=== PATIENT | male | born 1990 | race Caucasian/White ===

== ENCOUNTER 2023-06-11 10:19 | Emergency (ER) | payer OTHER, SELFPAY ==
[2023-06-11 10:30] VITALS: BP 128/91
[2023-06-11 11:20] VITALS: BP 130/80
[2023-06-11] MEDS: NSS 1000 IV (11:42)
[2023-06-11 11:50] LABS: % Basophils 0.2 % (0-2); % Eosinophils 0.1 % (0-6); % Immature Granulocytes 0.2 % (0-0.5); % Lymphocytes 14.4 % (20.5-51.1); % Monocytes 7.4 % (1.7-9.3); % Neutrophils 77.7 % (42.2-75.2); Absolute Lymphocytes 1.8 10^3/uL (1.2-3.4); Absolute Monocytes 0.9 10^3/uL (0.1-0.6); Absolute Neutrophils 9.6 10^3/uL (1.4-6.5); Hematocrit 47.7 % (39.0-52.0); Hemoglobin 16.8 g/dL (13.0-18.0); Mean Corp Hgb Conc. 35.2 g/dL (33.0-37.0); Mean Corpuscular Hgb 31.6 pg (27.0-31.0); Mean Corpuscular Volume 89.8 fL (80.0-94.0); Mean Platelet Volume 10.1 fL (7.4-10.4); Nucleated Red Blood Cells % 0 % (-); Platelet Count 240 10^3/uL (130-400); Red Blood Cell Count 5.31 10^6/uL (4.70-6.10); Red Cell Dist. Width 11.8 % (11.5-14.5); White Blood Cell Count 12.3 10^3/uL (4.8-10.8)
[2023-06-11 12:00] LABS: ALT (SGPT) 30 U/L (0-50); AST (SGOT) 25 U/L (17-59); Albumin 4.8 g/dl (3.5-5.0); Alkaline Phosphatase 57 U/L (38-126); Blood Urea Nitrogen 16 mg/dl (9-20); Calcium 10.3 mg/dl (8.4-10.2); Carbon Dioxide 26 mmol/L (22-30); Chloride 103 mmol/L (98-107); Glucose 100 mg/dl (70-99); Lipase 44 U/L (23-300); Potassium 4.6 mmol/L (3.5-5.1); Sodium 137 mmol/L (135-145); eGFR > 60.00
--- NOTE | 2023-06-11 12:25 | ED.GENMED ---
History of Present Illness
General
Chief Complaint: Abdominal Symptoms
Source: patient
Exam Limitations: none
Time Seen by Provider: 06/11/23 11:28
Travel History
Have you had any contact with someone who has COVID-19?: No
Do you have any symptoms of coronavirus? Fever > 100 degrees, chills, cough, shortness of breath, sore throat, loss of taste or smell, muscle aches, or headache?: No
History of Present Illness
History of Present Illness:
32-year-old male with history of Crohn's disease presents with onset of abdominal pain last evening. The pain is periumbilical pain with associated vomiting. He is on a every 8-week infusion of Inflectra for his Crohn's disease. He follows at
[facility] for this. He spoke with his GI team this morning at the onset of symptoms they recommend he come for evaluation. No fever. No known sick contacts. He has not had significant bowel movements. No prior bowel obstruction.
No prior abdominal surgery. No other complaints at this time
Phy Exam
Physical Exam
Physical Exam:
General: Well-appearing male no acute respiratory distress
HEENT: Normocephalic atraumatic
Heart: Regular rate and rhythm no murmurs
Lungs: Clear to auscultation bilaterally no wheeze
Abdomen soft tender to the epigastric and periumbilical region. No guarding rebound normal bowel sounds nondistended
Extremities: No cyanosis
Course
Orders/Labs/Results
Orders:
Orders
06/11/23 11:35
CT Abd/pelvis W Iv Cont Urgent
Comment:
Reason For Exam: mid abdominal pain, history of crohns
06/11/23 11:39
0.9% Sodium Chloride 1000 ml [Nss] 1,000 ml IV BOLUS
06/11/23 11:41
Complete Blood Count/With Diff Urgent
Comprehensive Metabolic Panel Urgent
Lipase Urgent
Abnormal Lab Results
06/11/23
11:41
WBC 12.3 H 10^3/uL
(4.8-10.8)
MCH 31.6 H pg
(27.0-31.0)
Absolute Neuts (auto) 9.6 H 10^3/uL
(1.4-6.5)
Absolute Monos (auto) 0.9 H 10^3/uL
(0.1-0.6)
Neutrophils % 77.7 H %
(42.2-75.2)
Lymphocytes % 14.4 L %
(20.5-51.1)
Glucose 100 H mg/dl
(70-99)
Calcium 10.3 H mg/dl
(8.4-10.2)
Total Bilirubin 3.0 H mg/dl
(0.2-1.3)
06/11/23 11:41
06/11/23 11:41
Vital Signs
Initial and Last Documented VS:
Initial Vital Signs
Temp Pulse Resp BP Pulse Ox
98.4 F 100 18 128/91 99
06/11/23 10:30 06/11/23 10:30 06/11/23 10:30 06/11/23 10:30 06/11/23 10:30
Last Documented Vital Signs
Temp Pulse Resp BP Pulse Ox
98.4 F 86 16 126/82 100
06/11/23 10:30 06/11/23 13:51 06/11/23 13:51 06/11/23 13:51 06/11/23 13:51
MDM/Problems Addressed
Differential Diagnosis Includes:
Abdominal pain with history of Crohn's disease. Consider gastritis versus Crohn's flare versus pancreatitis versus bowel obstruction
Labs pending. Will check CT with IV contrast. Patient declined pain medications at this time.
*Critical Care Note
Total Time (30-74mins, 75-104mins- exclusive of procedures): Not Applicable
Update Note
Update Note:
CT shows bowel wall thickening of the small bowel terminal ileum and colon. This would be suggestive mostly of a flare of his underlying inflammatory bowel disease. No perforations or abscesses noted. No signs of obstruction. Patient is able to
tolerate water here. Discussed these findings with on-call GI team. Will discharge home on oral prednisone. He has an appoint with his GI specialist at [facility] in 3 days. This is good follow-up. Patient unable to provide a
stool sample for discharge. Return precautions were given
ED Attending Note
-
Portions of this chart may have been created with voice recognition software.� Occasional wrong word or��sound alike� substitutions may have occurred due to the inherent limitations of voice recognition software.
Discharge Plan
Departure
Patient Disposition: Home (Routine Discharge)
Date of Disposition: 06/11/23
Time of Disposition: 14:20
Patient with high blood pressure during this ER visit?: No
Discharge Problem:
Crohn disease
Instructions: Crohn's Disease (DC)
Prescriptions:
New
prednisone 20 mg tablet
40 mg PO DAILY 7 Days Qty: 14 0RF
Referrals:
Abimbola Baker MD [Family Provider] -
Activity Restrictions/Additional Instructions:
Drink plenty clear liquids. Advance to bland diet as tolerated. Use prednisone as directed. Please follow-up as planned with your GI team. As discussed, return here for increasing pain vomiting fever or other concerning findings
Interventions
Interventions:
*Risk Screen - Suicide Last Done: 06/11/23 11:22
*General Assessment Last Done: 06/11/23 11:20
*Neglect/Abuse Screening Last Done: 06/11/23 11:22
*ED COVID-19 Vaccine History Last Done: 06/11/23 11:20
JI-Vkrwhv-Zcgqcblmhk Assessment Last Done: 06/11/23 11:21
Discharge Date and Time
Print Language: GEORGIAN
[2023-06-11 13:51] VITALS: BP 126/82
[2023-06-11] MEDS: DELTASONE 50 MG PO (14:50)
[2023-06-11] MEDS: TYLENOL 650 MG PO (14:50)
--- NOTE | 2023-06-11 14:52 | EDRN ---
Unable to obtain stool sample prior to discharge.
== END 2023-06-11 14:53 | disposition home or self-care (01) ==
LOC: EMR 10:19
PROVIDERS: Physician Assistant; EMERGENCY PHYSICIAN Emergency Medicine; FAMILY PHYSICIAN Internal Medicine
DX: K50.90 Crohn's disease, unspecified, without complications (principal)
CPT/HCPCS: 99284; 96360; 74177; 80053; 83690; 85025; Q9967

== ENCOUNTER 2023-06-11 23:02 | Inpatient (IN) | payer OTHER, SELFPAY ==
[2023-06-11 21:31] VITALS: BP 141/95
--- NOTE | 2023-06-11 22:08 | ED.GENMED ---
History of Present Illness
General
Chief Complaint: Abdominal Pain
Source: patient, records, spouse and family
Time Seen by Provider: 06/11/23 21:37
Nursing documentation reviewed up to this point in time: agreed with
Travel History
Have you had any contact with someone who has COVID-19?: No
Do you have any symptoms of coronavirus? Fever > 100 degrees, chills, cough, shortness of breath, sore throat, loss of taste or smell, muscle aches, or headache?: No
History of Present Illness
History of Present Illness:
32-year-old male returns with abdominal pain history of Crohn's diagnosed about 6 years ago at [place] was in the ICU treated with antibiotics he is followed by [facility] GI takes a Remicade like infusion has really had an
exacerbation since his initial and 6 years ago seen in the ER less than 24 hours ago with pain after discussion with GI at [facility] was deemed stable for discharge with outpatient follow-up has an appointment on Wednesday treated with
Tylenol and steroids states since he was discharged has had nausea vomiting, vomited Tylenol thinks he Is steroid down no fevers, no bloody stools, he feels bloated
Past History
Past History
ED Past Medical History: Other (chronc)
ED Past Surgical History: Negative Appendectomy or Bowel resection
Social History
Tobacco: Non-smoker
Alcohol: None
Drug: None
Personal:
Living: with family
Employment: Employed
Review of Systems
Review of Systems
All Other Systems: Not applicable
Constitutional: Denies fever or fatigue
EENT: Reports no symptoms
Respiratory: Reports no symptoms
Cardiac: Reports no symptoms
ABD/GI: Reports abdominal pain, nausea and vomiting; Denies bloody stools or black stools
: Reports no symptoms
Musculoskeletal: Reports no symptoms
Neurological: Reports no symptoms
Endocrine: Reports no symptoms
Phy Exam
Physical Exam
Physical Exam:
Physical Exam
General: no apparent distress, not acutely ill
Neck: No jaundice
Heart: s1/s2 regular rate and rhythm, no murmur. equal radial pulses.
Lungs: no acute respiratory distress. clear bilaterally
Abdomen: Distended mild diffuse tender
Neuro: alert and oriented. no focal neurological deficits
Skin: no rash
Psychiatric: well kept. interactive and cooperative
Extremities: no edema.
Course
Orders/Labs/Results
Orders:
Orders
06/11/23 22:05
CBC/With ESR Urgent
CRP [C-Reactive Protein] Urgent
Comprehensive Metabolic Panel Urgent
06/11/23 22:11
Dexamethasone Sod Phosphate [Decadron] 10 mg IV NOW STA
HYDROmorphone [Dilaudid] 1 mg IV NOW STA
Ondansetron Injectable [Zofran] 4 mg IV NOW STA
06/11/23 22:12
0.9% Sodium Chloride 1000 ml [Nss] 1,000 ml IV BOLUS
Abnormal Lab Results
06/11/23
22:05
WBC 13.7 H 10^3/uL
(4.8-10.8)
MCH 31.9 H pg
(27.0-31.0)
Absolute Neuts (auto) 12.2 H 10^3/uL
(1.4-6.5)
Absolute Lymphs (auto) 0.9 L 10^3/uL
(1.2-3.4)
Neutrophils % 89.3 H %
(42.2-75.2)
Lymphocytes % 6.4 L %
(20.5-51.1)
06/11/23 22:05
Vital Signs
Initial and Last Documented VS:
Initial Vital Signs
Temp Pulse Resp BP Pulse Ox
98.9 F 82 20 141/95 97
06/11/23 21:31 06/11/23 21:31 04/12/24 21:31 06/11/23 21:31 06/11/23 21:31
Last Documented Vital Signs
Temp Pulse Resp BP Pulse Ox
98.9 F 82 20 129/86 96
06/11/23 21:31 06/11/23 21:31 06/11/23 21:31 06/11/23 22:09 06/11/23 22:10
*Radiology
Radiology exam reviewed: radiology read reviewed
*Pulse Oximetry
Patient hypoxic: no
*Critical Care Note
Total Time (30-74mins, 75-104mins- exclusive of procedures): Not Applicable
Update Note
Update Note:
Update, prior workup from visit noted CAT scan report noted labs noted patient was deemed stable to go home after discussion with his GI physicians on some steroids, he is back with increased pain and bloating low threshold to admit we will start IV
steroids he is having no loose stools check inflammatory markers will not reimage at this point
ED Attending Note
-
Portions of this chart may have been created with voice recognition software.� Occasional wrong word or��sound alike� substitutions may have occurred due to the inherent limitations of voice recognition software.
Discharge Plan
Departure
Patient Disposition: Admit
Date of Disposition: 06/11/23
Time of Disposition: 22:27
Admit to: Med/Surg
Presentation/result/management discussed w/ accepting MD/DO: Hospitalist
Patient with high blood pressure during this ER visit?: No
Condition: Good
Discharge Problem:
Crohn disease
Prescriptions:
No Action
prednisone 20 mg tablet
40 mg PO DAILY 7 Days Qty: 14 0RF
Interventions
Interventions:
*Risk Screen - Suicide Last Done: 06/11/23 21:31
*General Assessment Last Done: 06/11/23 21:31
*Neglect/Abuse Screening Last Done: 06/11/23 21:31
ED- Fall Risk Assessment Last Done: 06/11/23 21:31
*ED COVID-19 Vaccine History Last Done: 06/11/23 21:31
AD-Dfrpwu-Qdosdwotjf Assessment Last Done: 06/11/23 22:10
Discharge Date and Time
Print Language: GREENLANDIC
[2023-06-11 22:09] VITALS: BP 129/86
[2023-06-11 22:10] VITALS: BMI 27.6
[2023-06-11 22:10] LABS: % Basophils 0.1 % (0-2); % Immature Granulocytes 0.3 % (0-0.5); % Lymphocytes 6.4 % (20.5-51.1); % Monocytes 3.9 % (1.7-9.3); % Neutrophils 89.3 % (42.2-75.2); Absolute Lymphocytes 0.9 10^3/uL (1.2-3.4); Absolute Monocytes 0.5 10^3/uL (0.1-0.6); Absolute Neutrophils 12.2 10^3/uL (1.4-6.5); Hemoglobin 16.3 g/dL (13.0-18.0); Mean Corp Hgb Conc. 36.2 g/dL (33.0-37.0); Mean Corpuscular Hgb 31.9 pg (27.0-31.0); Mean Corpuscular Volume 88.1 fL (80.0-94.0); Mean Platelet Volume 10.1 fL (7.4-10.4); Nucleated Red Blood Cells % 0 % (-); Platelet Count 229 10^3/uL (130-400); Red Blood Cell Count 5.11 10^6/uL (4.70-6.10); Red Cell Dist. Width 11.6 % (11.5-14.5); White Blood Cell Count 13.7 10^3/uL (4.8-10.8)
[2023-06-11] MEDS: NSS 1000 IV (22:14)
[2023-06-11 22:16] LABS: Erythrocyte Sed Rate 5 mm/hour (0-20)
[2023-06-11] MEDS: ZOFRAN 4 MG IV (22:17)
[2023-06-11] MEDS: DILAUDID 1 MG IV (22:20)
[2023-06-11] MEDS: DECADRON 10 MG IV (22:22)
--- NOTE | 2023-06-11 22:24 | HPS.HSE ---
Family Physician
<XIN Byrd - Last Filed: 06/11/23 22:52>
-
Family Physician:
Chief Complaint
<XIN Byrd - Last Filed: 06/11/23 22:52>
-
Abdominal pain associate with nausea vomiting
History of Present Illness
32-year-old male with past medical history for polyps disease. Patient on Inflectra every 8 weeks. He follows [facility] GI as outpatient. He presented back with mid abdominal pain associate with nausea vomiting for past 2 days. He was
evaluated in the ER this morning. Patient was sent home on prednisone. Patient does have an appointment with [facility] on Wednesday. He had a regular bowel movement yesterday morning. Patient not tolerating any oral intake. Denied fever, chills,
chest pain, short of breath. Patient denied headache, dizziness, syncopal episode. Patient denied dysuria, hematuria.
Medical History
<XIN Byrd - Last Filed: 06/11/23 22:52>
Past Medical History
Past Medical History: Reports Other
Additional Past Medical History:
crohn's disease
Past Surgical History: Reports None
Social History
Tobacco: Non-smoker
Alcohol: None
Drug: None
Family History
Family History: Not pertinent
Allergies / Home Medications
Allergies reflects when Allergies were last updated in [facility].
Home Medications with original date entered in [facility]
Allergy/Medication List:
Allergies
Allergy/AdvReac Type Severity Reaction Status Date / Time
No Known Allergies Allergy Verified 06/11/23 21:34
Home Medications
infliximab-dyyb 100 mg intravenous solution (Inflectra) mg IV 06/11/23
prednisone 20 mg tablet 40 mg (2 x 20 mg) PO DAILY 7 days #14 tabs 06/11/23
Review of Systems
<IzaXIN Nelson - Last Filed: 06/11/23 22:52>
-
Constitutional: Reports No Symptoms
EENT: Reports No Symptoms
Respiratory: Reports No Symptoms
Cardiac: Reports No Symptoms
Abdomen/GI: Reports Abdominal Pain, Nausea and Vomiting
: Reports No Symptoms
Musculoskeletal: Reports No Symptoms
Skin: Reports No Symptoms
Neurological: Reports No Symptoms
Endocrine: Reports No Symptoms
Hematologic/Lymphatic: Reports No Symptoms
Psych: Reports No Symptoms
Physical Exam
<IzaXIN Nelson - Last Filed: 06/11/23 22:52>
Vital Signs
Vital Signs
Temp Pulse Resp BP Pulse Ox
98.9 F 82 20 129/86 96
06/11/23 21:31 06/11/23 21:31 06/11/23 21:31 06/11/23 22:09 06/11/23 22:10
Physical Exam
General: Well Developed, Well Nourished and No Apparent Distress
HEENT: NormoCephalic, Moist mucous membranes and Atraumatic
Respiratory: Clear
Cardiac: S1/S2 and Regular Rhythm; No Murmur or Rub
GI: Soft, Non Distended, Normal Bowel Sounds and Tender; No Organomegaly
Rectal: Deferred by Provider
Musculoskeletal: No Clubbing, No Cyanosis and No Edema
Skin: No Rash
Neuro: Nonfocal/grossly intact
Laboratory Results
<XIN Byrd - Last Filed: 06/11/23 22:52>
-
06/11/23 22:05
Data Reviewed
<XIN Byrd - Last Filed: 06/11/23 22:52>
-
CT Scan: Report Reviewed by me
Impression/Plan
<XIN Byrd - Last Filed: 06/11/23 22:52>
-
# abdominal pain associated with n/v likely from Crohn's flare
-WBC 13.7 likely from steroids
-CT abdomen pelvis with impression of Inflamed/thickened appearance of multiple mid small bowel loops as well as the descending and sigmoid colon. Findings compatible with acute flare related to patient's inflammatory bowel disease. The ileum is
decompressed with mildly thickened appearance extending to the terminal ileum. Presence of a stricture difficult to exclude. Small amount of free fluid within the pelvis.Cholelithiasis.
-IV dexamethasone in ER
-solu Medrol 60mg iv daily
-Dilaudid as needed for pain
-Zofran as needed for nausea vomiting
-fluids continued for hydration.
-N.p.o.
-GI consulted
# DVT prophylaxis
-SCD
# CODE STATUS
-Full code
<Bertha Johnston, DO - Last Filed: 06/11/23 23:12>
-
# abdominal pain associated with n/v likely from Crohn's flare
-WBC 13.7 likely from steroids
-CT abdomen pelvis with impression of Inflamed/thickened appearance of multiple mid small bowel loops as well as the descending and sigmoid colon. Findings compatible with acute flare related to patient's inflammatory bowel disease. The ileum is
decompressed with mildly thickened appearance extending to the terminal ileum. Presence of a stricture difficult to exclude. Small amount of free fluid within the pelvis.Cholelithiasis.
-IV dexamethasone in ER
-solu Medrol 60mg iv daily
-Dilaudid as needed for pain
-Zofran as needed for nausea vomiting
-fluids continued for hydration.
-N.p.o.
-GI consulted
# DVT prophylaxis
-SCD
# CODE STATUS
-Full code
Attending Attestation
HPI
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 Pt was in ER earlier today, diagnosed with Crohns Flare and discharged with oral prednisone which he could not tolerate.
He reports 2 days of mid-epigastric abdominal pain, waxing/waning associated with N/Vx2 (nonbloody). Cannot tolerate any foods at this time. +bloating. Has not passed a stool since yesterday, but denies known bloody/black stools. Reports he has not
had a recent flare or been on IV/oral steroids. Last infliximab infusion was 05/04/2023, due every q8 weeks. Pt follows with GI at [facility] Dr. Mckenzie Wade. Last [place] 07/03/2022. Denies fever, chills, dizziness/LH, CP, palps, wheezing, cough, dysuria,
flank pain, calf or leg pain/swelling.
Physical Exam
General: NAD. Following commands
HEENT: NC/AT. Dry MM. No exudates in oropharynx.
Cardiac: RRR, +S1/S2, No M/R/G
Pulm: CTA b/l, No accessory muscle use
GI: Soft. Minimal distention. Mild midepigastric TTP. No rebound or guarding.
: No Wilson. No CVA tenderness
MSK/Neuro: 5/5 MSK throughout. No focal deficits.
Ext: MAEx4. Distal pulses +2/4 symmetrically intact.
A/P
Intractable Abdominal Pain 2/2 Acute Crohns Flare
Leukocytosis - Suspect leukocytosis is in setting of flare vs related to steroids. Monitoring off abx
DVT PPx - SCDs. Consider chemical DVT ppx if no rectal bleeding and pt remains in hospital
- Last infliximab infusion was 05/04/2023, due every q8 weeks.
- CT abdomen pelvis reviewed: Inflamed/thickened appearance of multiple mid small bowel loops as well as the descending and sigmoid colon. Findings compatible with acute flare related to patient's inflammatory bowel disease. The ileum is
decompressed with mildly thickened appearance extending to the terminal ileum. Presence of a stricture difficult to exclude. Small amount of free fluid within the pelvis. Cholelithiasis
- LFTs wnl. Lipase checked earlier today and wnl.
- S/P IV dexamethasone in ER. Will change to 60mg IV solumedrol daily. Transition to orals when able to tolerate PO
- PRN Zofran. IVF.
- NPO status. ADAT.
- Consult GI - Pt follows with GI at [facility] Dr. Mckenzie Wade.
Communication: Fiance and mother present at time of evaluation. I discussed care plan with patient and family together who are agreeable.
[2023-06-11 22:29] LABS: ALT (SGPT) 27 U/L (0-50); AST (SGOT) 22 U/L (17-59); Albumin 4.7 g/dl (3.5-5.0); Alkaline Phosphatase 54 U/L (38-126); Blood Urea Nitrogen 16 mg/dl (9-20); Calcium 10.2 mg/dl (8.4-10.2); Carbon Dioxide 24 mmol/L (22-30); Chloride 100 mmol/L (98-107); Estimated Creatinine Clearance > 125 ml/min; Glucose 124 mg/dl (70-99); Potassium 4.3 mmol/L (3.5-5.1); Sodium 135 mmol/L (135-145); Total Bilirubin 2.8 mg/dl (0.2-1.3); Total Protein 7.4 g/dl (6.3-8.2); eGFR > 60.00
[2023-06-11 23:00] VITALS: BP 121/93
--- NOTE | 2023-06-11 23:19 | W.PN.UPDATE ---
Addendum entered and electronically signed by Bertha Johnston DO 06/11/23 23:23:
Plan Initially stating LFTs wnl.
TBili 3.0 earlier today -> 2.8 on repeat
RUQ exam benign
CT a/p reviewed: No acute biliary tree pathology. Cholelithiasis noted.
Suspect indirect elevation may be cholestasis from dehydration vs gilberts. Appreciate GI recs.
Check AM LFTs and evaluate direct bilirubin
Original Note:
Update Note
Progress Note Update
Please refer to attestation to [employer]PER[employer] note for attending history/assessment/plan
--- NOTE | 2023-06-11 23:45 | PTCARENOTE ---
Pt admitted to unit from ED, AAOx3 VSS denies pain or SOB. Pt pleasant and cooperative able to make needs known. Reports LBM on 06/09, nausea earlier before arriving to ED but denies now. Reports pain is being controlled with IV pain medications. Pt
oriented to unit and hospital policies call mancia within reach
[2023-06-12] VITALS: BP 124/76; BMI 26.9
[2023-06-12] MEDS: NSS 1000 IV ×2 (00:15→12:49)
--- NOTE | 2023-06-12 06:22 | CON.GI ---
Addendum entered and electronically signed by Leeanna Hannah Do, MD 06/12/23 09:13:
I saw and examined the patient.
The BOWL TOPPER's note was reviewed and I agree with the note.
Comment: Garland is a 32yo M with h/o Crohn's disease diagnosed at 26 with possible fistulizing disease currently on inflectra since 2021 who is admitted for abd pain and PO intolerance with CT AP with IV contrast showing Inflamed/thickened
appearance of multiple mid small bowel loops as well as the descending and sigmoid colon. Findings compatible with acute flare related to patient's inflammatory bowel disease. Exam VSS, mild epigastric TTP, NABS no guarding or rebound. No mouth
sores. Labs reviewed without anemia.
Impression
- Acute diffuse abd pain with inflamed SB and L colon
Suspect Crohn's flare. This would be his 1st since diagnosis at age 26
- Cholelithiasis
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
- Gilbert's
Recommendations
- Improving on IV solumedrol Q8H
- Adv to CLD today
- Await stools for stool studies testing
- C/w IVF
- He has OP FU with [facility] Dr Wade on Wednesday
Will follow with you.
Original Note:
Consultation
-
Date/Time Consultation Requested: 06/12/23 0001
Date/Time Consultation Performed: 06/12/23 0700
Requesting Provider: XIN Alves
Performing Provider: XIN Everett, Leeanna Moise MD
Reason for Consultation: abdominal pain, hx crohns
Medical History
Chief Complaint / HPI
Chief Complaint: abdominal pain
History of Present Illness:
Pt is a 32yo with hx crohn's disease x 6 years, PVT, liver infection, cholelithiasis, ACL repair. Initial diagnosis was 2018 at [place] [facility] with ICU admission with noted Phlegmon, liver infection, and PVT thrombosis and concern for fistulizing
crohn's disease. He was treated with antibiotics and anticoagulation course and no surgery was required. He has been treated through [facility] since that time with Dr. Wade with Remicade then Inflectra for last 2 years with
stable disease. Last colonoscopy 06/2022 with stable disease and normal path. MRI 08/2022 with mild acute inflammation of terminal ileum. No hospital admission since 2018 and no prior steroid use. No history of prior abdominal surgery. On
admission ESR 5, CRP 6.6 otherwise labs stable except WBC 13,700, glucose 124 and bilirubin 2.8 with no baseline labs in DH system but note hx prior mild glucose elevations and prior bilirubin elevation at [place] labs. CT completed on admission with
thickening of multiple mid SB loops as well as descending and sigmoid colon with concern for crohns flare. The ileum is decompressed with mildly thickened appearance extending to the terminal ileum. Presence of a stricture difficult to exclude. Pt
states he began with abdominal pain with vomiting and constipation on . He initially came to ER was treated wtih PO steroids and plan for [place] follow up Wednesday but returned with inability to eat and started on IV steroids with some
improvement this am. No current rashes, visual problems or Joint pains.
Pt currently admits to recent abdominal pain since . He also noted constipation and vomiting. He denies GERD, dysphagia, blood or black in stools. Normal stool pattern 1-2 stools daily. No fever, + 7 lbs intentional wt loss.
Maternal grandmother and great grandmother with colon CA.
.
Past Medical History
Past Medical History: Other ( cholelithiasis, 2018 - PVT, phegmon and liver infection with concern for fistulizing crohn's disease, migraines)
Past Surgical History: Orthopedic (ACL repair)
Social History
Tobacco: Non-Smoker
Alcohol: None
Drug: None
Personal: Other (bharat)
Living: With Family
Employment: Employed
Family History
Family History: Other (maternal grandmother and great grandmother with colon CA)
Allergies / Home Medications
Allergy/AdvReac Type Severity Reaction Status Date / Time
No Known Allergies Allergy Verified 06/11/23 21:34
�Medication �Instructions �Recorded
infliximab-dyyb 100 mg intravenous mg IV 06/11/23
solution (Inflectra)
prednisone 20 mg tablet 40 mg (2 x 20 mg) PO DAILY 7 days 06/11/23
#14 tabs
Review of Systems
-
History Source: Patient
Constitutional: Reports Weight Loss (7 lbs intentional loss )
EENT: Reports No Symptoms
Abdomen/GI: Reports Abdominal Pain, Nausea, Vomiting and Constipated
: Reports No Symptoms
Musculoskeletal: Reports No Symptoms
Skin: Reports No Symptoms
Neurological: Reports No Symptoms
Endocrine: Reports No Symptoms
Hematologic/Lymphatic: Reports No Symptoms
Vital Signs
Temp Pulse Resp BP Pulse Ox
98.3 F 72 20 124/76 97
06/12/23 00:00 06/12/23 00:00 06/12/23 00:00 06/12/23 00:00 06/12/23 00:00
Physical Exam
Exam
General: Well Developed, Well Nourished and No Apparent Distress
HEENT: Normocephalic and Anicteric
Respiratory: Clear
Cardiac: Regular Rhythm
GI: Soft, Non Distended and Tender (mild mid right tenderness)
Musculoskeletal: No Clubbing and No Cyanosis
Skin: Warm and Dry
Neuro: Awake, Alert and AO x 3
Results
WBC 13.7 10^3/uL (4.8-10.8) H 06/11/23 22:05
Hgb 16.3 g/dL (13.0-18.0) 06/11/23 22:05
Hct 45.0 % (39.0-52.0) 06/11/23 22:05
MCV 88.1 fL (80.0-94.0) 06/11/23 22:05
Plt Count 229 10^3/uL (130-400) 06/11/23 22:05
Absolute Neuts (auto) 12.2 10^3/uL (1.4-6.5) H 06/11/23 22:05
Sodium 135 mmol/L (135-145) 06/11/23 22:05
Potassium 4.3 mmol/L (3.5-5.1) 06/11/23 22:05
Chloride 100 mmol/L (98-107) 06/11/23 22:05
Carbon Dioxide 24 mmol/L (22-30) 06/11/23 22:05
BUN 16 mg/dl (9-20) 06/11/23 22:05
Creatinine 0.9 mg/dL (0.7-1.3) 06/11/23 22:05
Calcium 10.2 mg/dl (8.4-10.2) 06/11/23 22:05
Total Bilirubin 2.8 mg/dl (0.2-1.3) H 06/11/23 22:05
AST 22 U/L (17-59) 06/11/23 22:05
ALT 27 U/L (0-50) 06/11/23 22:05
Alkaline Phosphatase 54 U/L (38-126) 06/11/23 22:05
Diagnostic Image Results:
06/11/23 CT Abd/pelvis W Iv Cont no oral contrast
1. Inflamed/thickened appearance of multiple mid small bowel loops as well as the descending and sigmoid colon. Findings compatible with acute flare related to patient's inflammatory bowel disease. The ileum is decompressed with mildly thickened
appearance extending to the terminal ileum. Presence of a stricture difficult to exclude. Small amount of free fluid within the pelvis.
2. Cholelithiasis.
3. Additional findings above
Prior GI Procedures:
EGD: none
Colonoscopy: last [facility] 06/2022 stable disease
MRE: 06/2022 milid improved inflammation in TI
Assessment / Plan
-
Pt is a 32yo with hx crohn's disease x 6 years, PVT, liver infection, migraines, cholelithiasis, ACL repair. Initial diagnosis was 2018 at [facility] with ICU admission with noted Phlegmon, liver infection, and PVT thrombosis and concern for
fistulizing crohn's disease. He was treated with antibiotics and anticoagulation course and no surgery was required. He has been treated through [facility] since that time with Dr. Wade with Remicade then Inflectra for last
2 years with stable disease. Last colonoscopy 06/2022 with stable disease and normal path. MRI 08/2022 with mild acute inflammation of terminal ileum. No hospital admission since 2018 and no prior steroid use. No hx prior abdominal surgery. On
admission ESR 5, CRP 6.6 otherwise labs stable except WBC 13,700, glucose 124 and bilirubin 2.8 with no baseline labs in DH system but note hx prior mild glucose elevations and prior bilirubin elevation at [place] labs. CT completed on admission with
thickening of multiple mid SB loops as well as descending and sigmoid colon with concern for crohns flare. The ileum is decompressed with mildly thickened appearance extending to the terminal ileum. Presence of a stricture difficult to exclude. Pt
states he began with abdominal pain with vomiting and constipation on . He initially came to ER was treated wt PO steroids and plan for [place] follow up Wednesday but returned with inability to eat and started on IV steroids with some
improvement this am. No current rashes, visual problems or Joint pains.
-abdominal pain
-CT with concern for thickening SB loops as well as descending and sigmoid
-hx crohns on Inflectra follows at [facility]
-hx prior PVT, pheglmon and liver infection 2018 with diagnosis of crohns and concern for fistulizing disease
-leukocytosis
-elevated bilirubin elevation with prior elevation in past ? gilbert's
-hx ACL repair
-family hx colon cancer grandmother/great grandmother
PLAN:
Etiology of symptoms with concern for crohn's flare vs other
some improvement in pain this am
pt intolerant of initial oral steroid course(first course) with vomiting and now on IV steroids Solumedrol 60mg
will change to Solumedrol to 20mg Q 8 hours-- reviewed with nursing dose not given this am
will trial sips clears advance as tolerated
OP follow up scheduled with Dr. Wade for Wednesday hopefully will be discharged prior to proceed with follow up
CRP 6.6/ESR 5 on admission
repeat LFT's pending this am with bili elevation to assess for ? gilbert's vs other
-
-
Thank you for consultation and allowing me to participate in the patient's care. Please call the pest control worker helper GI physician during the after hours with any questions or concerns.
[2023-06-12 07:52] VITALS: BP 116/74
[2023-06-12 08:15] LABS: Hematocrit 42.5 % (39.0-52.0); Hemoglobin 14.7 g/dL (13.0-18.0); Mean Corp Hgb Conc. 34.6 g/dL (33.0-37.0); Mean Corpuscular Volume 92.6 fL (80.0-94.0); Mean Platelet Volume 11.2 fL (7.4-10.4); Platelet Count 204 10^3/uL (130-400); Red Blood Cell Count 4.59 10^6/uL (4.70-6.10); Red Cell Dist. Width 11.8 % (11.5-14.5); White Blood Cell Count 12.3 10^3/uL (4.8-10.8)
[2023-06-12] MEDS: SOLU-MEDROL PF 20 MG IV ×2 (08:19→18:10)
[2023-06-12 08:45] LABS: ALT (SGPT) 26 U/L (0-50); AST (SGOT) 25 U/L (17-59); Alkaline Phosphatase 52 U/L (38-126); Blood Urea Nitrogen 17 mg/dl (9-20); Calcium 9.2 mg/dl (8.4-10.2); Carbon Dioxide 23 mmol/L (22-30); Chloride 106 mmol/L (98-107); Direct Bilirubin 0.3 mg/dl (0.0-0.4); Estimated Creatinine Clearance > 125 ml/min; Glucose 110 mg/dl (70-99); Potassium 4.4 mmol/L (3.5-5.1); Sodium 136 mmol/L (135-145); Total Bilirubin 2.8 mg/dl (0.2-1.3); Total Protein 6.6 g/dl (6.3-8.2); eGFR > 60.00
--- NOTE | 2023-06-12 09:13 | W.PN.UPDATE ---
Update Note
Progress Note Update
Billing purposes
--- NOTE | 2023-06-12 10:43 | W.PN.HOSP.TC ---
Today's Communication/Plan
-
CW steroids
Advance diet per GI
Assessment / Plan
Assessment / Plan
A/P
Intractable Abdominal Pain 2/2 Acute Crohns Flare
Leukocytosis - Suspect leukocytosis is in setting of flare vs related to steroids. Monitoring off abx
- Last infliximab infusion was 05/04/2023, due every q8 weeks.
- CT abdomen pelvis reviewed: Inflamed/thickened appearance of multiple mid small bowel loops as well as the descending and sigmoid colon. Findings compatible with acute flare related to patient's inflammatory bowel disease. The ileum is
decompressed with mildly thickened appearance extending to the terminal ileum. Presence of a stricture difficult to exclude. Small amount of free fluid within the pelvis. Cholelithiasis
- LFTs wnl except bili which is all indirect . Lipase wnl.
- cw IV steroids per GI
- cw CLD- advance per GI
Anticipated Discharge: 24 - 48 hours
Subjective/Interval History
-
Date of Service: June 12, 2023
Patient started to improve-less abdominal pain. Tolerating clear liquids without nausea or vomiting. Passing gas. No diarrhea.
No fever or chills.
Objective Data
-
Labs:
Laboratory Results
06/12/23
06:37
WBC 12.3 H
Hgb 14.7
Hct 42.5
Plt Count 204
Sodium 136
Potassium 4.4
Chloride 106
Carbon Dioxide 23
BUN 17
Creatinine 0.8
Glucose 110 H
Calcium 9.2
Total Bilirubin 2.8 H
AST 25
ALT 26
Alkaline Phosphatase 52
Vital Signs:
Vital Signs
Temp Pulse Resp BP Pulse Ox
98.2 F 77 16 116/74 95
06/12/23 07:52 06/12/23 07:52 06/12/23 07:52 06/12/23 07:52 06/12/23 07:52
I&O
06/11/23 06/12/23 06/13/23
06:59 06:59 06:59
Intake Total 560 / 560
Balance 560 / 560
Physical Exam
-
General: No Apparent Distress
HEENT: Moist Mucous Membranes
Respiratory: Non Labored Respirations; Negative Accessory Resp Muscle Use
Cardiac: Regular Rhythm and S1/S2; Negative Tachycardic
GI: Soft
Neuro: AO x 3
Psych: Calm
Data Reviewed
-
Labs: Labs Reviewed by me
[2023-06-12 14:57] VITALS: BP 137/96
--- NOTE | 2023-06-12 15:30 | CM ---
CM met with pt and multiple family members
Pt resides with his parents and adult brother in a 2SH with 1 EMILY
Full flight to 2nd floo
Pt is independent with his ADLs
Denies use of DMEs and hx with VN/SNF
PCP- Abimbola Baker
Rx- [facility] is primary contact
Discharge Disposition- home, no needs anticipated
[2023-06-12 23:30] VITALS: BP 116/70
[2023-06-13] MEDS: NSS 1000 IV (00:07)
[2023-06-13] MEDS: SOLU-MEDROL PF 20 MG IV ×2 (00:07→08:17)
--- NOTE | 2023-06-13 03:42 | PTCARENOTE ---
pt had formed BM at this time, able to send down to lab stool culture and para stool specimen, Cdiff incomplete.
--- NOTE | 2023-06-13 05:32 | PTCARENOTE ---
cdiff specimen sent at this time
[2023-06-13 06:26] LABS: Hematocrit 42.2 % (39.0-52.0); Hemoglobin 14.4 g/dL (13.0-18.0); Mean Corp Hgb Conc. 34.1 g/dL (33.0-37.0); Mean Corpuscular Hgb 31.7 pg (27.0-31.0); Mean Platelet Volume 10.5 fL (7.4-10.4); Platelet Count 210 10^3/uL (130-400); Red Blood Cell Count 4.54 10^6/uL (4.70-6.10); Red Cell Dist. Width 11.8 % (11.5-14.5); White Blood Cell Count 11.9 10^3/uL (4.8-10.8)
[2023-06-13 06:58] LABS: Blood Urea Nitrogen 17 mg/dl (9-20); Calcium 9.7 mg/dl (8.4-10.2); Carbon Dioxide 25 mmol/L (22-30); Chloride 104 mmol/L (98-107); Estimated Creatinine Clearance > 125 ml/min; Glucose 114 mg/dl (70-99); Potassium 4.9 mmol/L (3.5-5.1); Sodium 137 mmol/L (135-145); eGFR > 60.00
[2023-06-13 08:07] VITALS: BP 126/78
--- NOTE | 2023-06-13 10:26 | W.PN.GI.CBS2 ---
Today's Communication / Plan
-
Tolerating low residue diet
D/c today on pred taper as above (60mg daily x7days, 50mg daily x7days, 40mg daily x7days, decreasing by 10mg every week)
Close GI FU with Dr Carrillo at [facility] Wednesday
GI will sign off please call for questions
Assessment / Plan
-
Pt is a 32yo with hx crohn's disease x 6 years, PVT, liver infection, migraines, cholelithiasis, ACL repair. Initial diagnosis was 2018 at [place] with ICU admission with noted Phlegmon, liver infection, and PVT thrombosis and concern for
fistulizing crohn's disease. He was treated with antibiotics and anticoagulation course and no surgery was required. He has been treated through [facility] since that time with Dr. Wade with Remicade then Inflectra for last
2 years with stable disease. Last colonoscopy 06/2022 with stable disease and normal path. MRI 08/2022 with mild acute inflammation of terminal ileum. No hospital admission since 2018 and no prior steroid use. No hx prior abdominal surgery. On
admission ESR 5, CRP 6.6 otherwise labs stable except WBC 13,700, glucose 124 and bilirubin 2.8 with no baseline labs in system but note hx prior mild glucose elevations and prior bilirubin elevation at [place] labs. CT completed on admission with
thickening of multiple mid SB loops as well as descending and sigmoid colon with concern for crohns flare. The ileum is decompressed with mildly thickened appearance extending to the terminal ileum. Presence of a stricture difficult to exclude. Pt
states he began with abdominal pain with vomiting and constipation on . He initially came to ER was treated wt PO steroids and plan for [place] follow up Wednesday but returned with inability to eat and started on IV steroids with some
improvement this am. No current rashes, visual problems or Joint pains.
Impression
-abdominal pain
-CT with concern for thickening SB loops as well as descending and sigmoid
-hx crohns on Inflectra follows at [facility]
-hx prior PVT, pheglmon and liver infection 2018 with diagnosis of crohns and concern for fistulizing disease
-leukocytosis
-gilbert's
-hx ACL repair
-family hx colon cancer grandmother/great grandmother
Plan
- resolution of abd pain on IV steroids
- transition to oral pred today
- tolerating low residue diet
- stool studies neg for infection
Ok from GI perspective for hosp d/c today. Will need pred taper 60mg daily x7d, tapering down 10mg every 7 days.
He has FU with GI Dr Carrillo at [facility] on Wednesday
Above d/w hospitalist. GI will sign off please call for questions.
Subjective
Subjective
Date of Service: June 13, 2023
Ate 100% of low residue diet and denies any further abd pain. No nausea/vomiting. He had 2 BM yesterday one formed and one loose. Stool studies neg
Objective
Data Reviewed
Laboratory Data:
Laboratory Results
06/13/23 06:10
06/13/23 06:10
Laboratory Results
Total Bilirubin 2.8 mg/dl (0.2-1.3) H 06/12/23 06:37
AST 25 U/L (17-59) 06/12/23 06:37
ALT 26 U/L (0-50) 06/12/23 06:37
Alkaline Phosphatase 52 U/L (38-126) 06/12/23 06:37
Vital Signs and I&O:
Vital Signs
Temp Pulse Resp BP Pulse Ox
98 F 64 16 126/78 99
06/13/23 08:07 06/13/23 08:07 06/13/23 08:07 06/13/23 08:07 06/13/23 08:07
I&O
06/12/23 06/13/23 06/14/23
06:59 06:59 06:59
Intake Total 560 / 560 600 / 600
Balance 560 / 560 600 / 600
Physical Exam
Physical Exam
GEN: No acute distress, conversant, pleasant
HEENT: anicteric, extraocular movements intact, clear oropharynx without exudates
GI: soft, non-distended, not tender to palpation, normal active bowel sounds, no hepatosplenomegaly
EXT: warm, well perfused, no edema bilaterally
NEURO: AAOx3, non-focal
[2023-06-13] MEDS: DELTASONE 60 MG PO (11:00)
--- NOTE | 2023-06-13 11:28 | W.DS.TRANS ---
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
-
Discharge Instructions:
Discharge Diagnosis/Procedures Crohn's flare
Diet Low Residue
Activity As tolerated
Driving Restrictions As prior to admission
Instructions:
Stand-Alone Forms:
Changes to Home Medications: Yes
Discharge Medications:
DC Medications w/original date entered in [facility]
infliximab-dyyb 100 mg intravenous solution (Inflectra) mg IV Gastrointestinal Issue 06/11/23
prednisone 10 mg tablet 10 mg PO DIRECTED #100 tabs 06/13/23
Home Medication Changes
Prednisone taper
Pending Results: No
--- NOTE | 2023-06-13 11:28 | W.PN.HOSP.TC ---
Today's Communication/Plan
-
DC
Assessment / Plan
Assessment / Plan
A/P
Intractable Abdominal Pain 2/2 Acute Crohns Flare
Leukocytosis - Suspect leukocytosis is in setting of flare vs related to steroids. Monitoring off abx
- Last infliximab infusion was 05/04/2023, due every q8 weeks.
- CT abdomen pelvis reviewed: Inflamed/thickened appearance of multiple mid small bowel loops as well as the descending and sigmoid colon. Findings compatible with acute flare related to patient's inflammatory bowel disease. The ileum is
decompressed with mildly thickened appearance extending to the terminal ileum. Presence of a stricture difficult to exclude. Small amount of free fluid within the pelvis. Cholelithiasis
- LFTs wnl except bili which is all indirect . Lipase wnl.
-Improving GI symptoms. Tolerating diet. Cleared for discharge by GI on steroid taper.
DC home today. Patient to follow-up with primary GI physician as scheduled next Wednesday.
Anticipated Discharge: Today
Subjective/Interval History
-
Date of Service: June 13, 2023
Tolerating diet without nausea vomiting or diarrhea.
No fever or chills.
Objective Data
-
Labs:
Laboratory Results
06/13/23
06:10
WBC 11.9 H
Hgb 14.4
Hct 42.2
Plt Count 210
Sodium 137
Potassium 4.9
Chloride 104
Carbon Dioxide 25
BUN 17
Creatinine 0.9
Glucose 114 H
Calcium 9.7
Vital Signs:
Vital Signs
Temp Pulse Resp BP Pulse Ox
98 F 64 16 126/78 99
06/13/23 08:07 06/13/23 08:07 06/13/23 08:07 06/13/23 08:07 06/13/23 08:07
I&O
06/12/23 06/13/23 06/14/23
06:59 06:59 06:59
Intake Total 560 / 560 600 / 600
Balance 560 / 560 600 / 600
Review of Systems
-
Respiratory: Denies Trouble Breathing
Cardiac: Denies Chest Pain
Neuro: Denies Dizzy
Physical Exam
-
General: No Apparent Distress and Comfortable
Respiratory: Non Labored Respirations; Negative Accessory Resp Muscle Use
GI: Soft and Nontender
Neuro: AO x 3
--- NOTE | 2023-06-13 11:35 | CM ---
CM reviewed chart and noted dc order
No dc needs noted
Discharge Disposition- home, no needs- family transport
--- NOTE | 2023-06-13 14:11 | W.DCSUMMARY ---
Discharge Summary
Discharge Data
Date of Admission: 06/11/23
Date of Discharge: 06/13/23
-
Pending Results: No
Hospital Course
primary diagnosis:
Acute Crohn's flare
Indirect hyperbilirubinemia suspected Gilbert's
Secondary diagnosis:
History of remote portal vein thrombosis
Cholelithiasis
Hospital course:
patient with known Crohn's disease presented with abdominal pain and p.o. intolerance. CT imaging showed inflamed/thickened multiple mid small bowel loops as well as descending and sigmoid colon. Seen by GI. Josephine clinical scenario compatible
with acute flare. Was initiated on high-dose steroids. Stool studies were done as well which were nondiagnostic. He improved with steroids. He was tolerating a low residue diet prior to discharge. He has outpatient follow-up with Dr Wade at
[facility] next week. CT of the abdomen pelvis on this admission showed cholelithiasis without any complications;known hx of cholelithiasis based on hx.
Consultants on board:
GI Dr Do
Discharge Plan
-
Patient Disposition: Home (Routine Discharge)
Discharge Diagnosis/Procedures: Crohn's flare
Condition: Fair
Diet: Low Residue
Activity: As tolerated
Driving Restrictions: As prior to admission
Referrals:
Abimbola Baker MD [Family Provider] -
Prescriptions:
New
prednisone 10 mg tablet
10 mg PO DIRECTED Qty: 100 0RF
Rx Instructions:
60mg daily for 7 days and cut by 10mg every week
Continued
Inflectra 100 mg Recon Soln
IV
Discontinued
prednisone 20 mg tablet
40 mg PO DAILY 7 Days Qty: 14 0RF
Discharge Orders:
Discharge Patient (As Directed); Ordered 06/13/23
Ordered By: Sunil Mirza
Discharge Date and Time
Discharge Date/Time: 06/13/23 12:29
Print Language: [id number]
== END 2023-06-13 12:29 | disposition home or self-care (01) | DRG 387 ==
LOC: 2 SOUTH 23:02
PROVIDERS: Registered Nurse; ADMITTING PHYSICIAN Internal Medicine; ATTENDING PHYSICIAN Internal Medicine; CONSULT PHYSICIAN Internal Medicine Gastroenterology; EMERGENCY PHYSICIAN Emergency Medicine; FAMILY PHYSICIAN Internal Medicine
DX: K50.90 Crohn's disease, unspecified, without complications (principal); K80.20 Calculus of gallbladder without cholecystitis without obstruction; K59.00 Constipation, unspecified; G43.909 Migraine, unspecified, not intractable, without status migrainosus; Z80.0 Family history of malignant neoplasm of digestive organs
CPT/HCPCS: 80048; 80053; 82248; 85025; 85027; 85652; 86140; 87045; 87046; 87324; 87328; 87329; 87427; 87449; 93005; 96361; 96374; 96375; 99284